=== PATIENT | female | born 1990 | race Hispanic/Latino ===

== ENCOUNTER 2018-08-31 13:07 | Emergency (ER) | payer OTHER ==
[2018-08-31 13:52] LABS: Urine Blood 1+ (NEG); Urine Glucose NEGATIVE (NEG); Urine Protein 1+ (NEG)
[2018-08-31 14:11] LABS: Urine Bacteria 20-50 /HPF (<20); Urine Culture Reflex Order REFLEXED; Urine Mucus 4+ /HPF (NONE SEEN); Urine RBC <5 /HPF (NONE SEEN)
[2018-08-31 15:05] LABS: Absolute Lymphocytes (CBC) 1.2 K/uL (0.7-4.9); Absolute Monocytes 0.4 K/uL (0.1-1.3); Absolute Neutrophil 3.1 K/uL (1.8-8.0); Basophils % 0.4 % (0-1.3); Eosinophils % 0.2 % (0-4.4); Hematocrit 39.9 % (36.0-45.0); Lymphocytes % 24.9 % (15.3-44.8); MPV 7.9 fL (7.6-11.3); Monocytes % 8.9 % (3.3-12.3); RBC Red Blood Cell Count 4.49 M/uL (3.86-4.86)
[2018-08-31] MEDS ORDERED: NA CHLORIDE 0.9% 1,000 ML ONE (15:14)
[2018-08-31] MEDS ORDERED: ACETAMINOPHEN 325 MG TABLET ONE (15:14)
--- NOTE | 2018-08-31 15:14 | RAD REPORT ---
EXAM DESCRIPTION: US - Transvaginal OB - 08/31/2018 2:26 pm CLINICAL HISTORY: , vaginal bleeding COMPARISON: None. TECHNIQUE: Endovaginal sonography performed. FINDINGS: A normal shaped intrauterine gestational sac is identified. pole is seen. [place]-rump length corresponds to a 9 week 3 day age. Calculated CARA is 04/02/2019. Heart rate is 177 BPM. Yolk sac is identified. A very small 5 mm subchorionic hemorrhage is present not seen as significant. A small 2 centimeter right ovarian cyst is present. No suspicious right ovarian or right adnexal find ing. Left ovary was not visualized. No left adnexal mass. Cervical canal appears closed. No blood or fluid in the cervical canal identified. IMPRESSION: Single 9 week 3 day IUP. Heart rate is 177 BPM. Cervical canal appears closed with no fluid or blood component. A very minimal 5 mm subchorionic hemo rrhage is present not regarded as significant.
[2018-08-31 15:40] LABS: BUN Blood Urea Nitrogen 9 mg/dL (7-18); Bicarbonate 25 mmol/L (21-32); Glucose Level 91 mg/dL (74-106); HCG, Quantitative 146029 mIU/mL (1-3); Potassium 3.8 mmol/L (3.5-5.1); Sodium Level 139 mmol/L (136-145)
[2018-08-31] MEDS ORDERED: CEFTRIAXONE/SWI 1gm 1 GM/10 ML SYR ONE (15:43)
--- NOTE | 2018-08-31 16:04 | EDPHYS ---
Physician Documentation [facility] Name: Jannette Persaud Age: 28 yrs Sex: Female : 1990 Arrival Date: 08/31/2018 Time: 13:11 Bed 23 Private MD: ED Physician Max Klein HPI: 08/31 14:05 This 28 yrs old Female presents to ER via Ambulatory with complaints of pm1 Vaginal Bleeding. 14:05 The patient presents with vaginal bleeding that is spotting. Onset: The pm1 symptoms/episode began/occurred 3 day(s) ago. Modifying factors: The symptoms are alleviated by nothing, the symptoms are aggravated by nothing. Associated signs and symptoms: Pertinent positives: cramping, Pertinent negatives: diarrhea, dysuria, fever, nausea, vaginal discharge, vomiting. Severity of symptoms: in the emergency department the symptoms are unchanged. The patient is sexually active. The patient has not experienced similar symptoms in the past. 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 No prior U/S of this current . LAB HEAD: 13:14 LMP 06/25/2018 14:05 2, Full Term 1, 0, Living 1 pm1 Historical: - Allergies: 13:13 No Known Allergies; hj - Home Meds: 13:13 Vitamin Oral tab 1 tab once daily [Active]; hj - PMHx: 13:13 None; hj - PSHx: 13:13 ; hj - Immunization history:: Adult Immunizations up to date. - Social history:: Smoking status: Patient/guardian denies using tobacco, Patient/guardian denies using alcohol. - Ebola Screening: : Patient negative for fever greater than or equal to 101.5 degrees Fahrenheit, and additional compatible Ebola Virus Disease symptoms Patient denies exposure to infectious person Patient denies travel to an Ebola-affected area in the 21 days before illness onset. ROS: 14:05 Positive for vaginal bleeding, Negative for burning with urination, difficulty pm1 urinating, vaginal discharge. 14:05 Constitutional: Negative for fever, chills, and weight loss, Eyes: Negative for injury, pain, redness, and discharge, ENT: Negative for injury, pain, and discharge, Neck: Negative for injury, pain, and swelling, Cardiovascular: Negative for chest pain, palpitations, and edema, Respiratory: Negative for shortness of breath, cough, wheezing, and pleuritic chest pain, Back: Negative for injury and pain, MS/Extremity: Negative for injury and deformity, Skin: Negative for injury, rash, and discoloration, Neuro: Negative for headache, weakness, numbness, tingling, and seizure. 14:05 Abdomen/GI: Positive for abdominal cramps, Negative for nausea, vomiting, and diarrhea. Exam: 14:07 Constitutional: This is a well developed, well nourished patient who is awake, alert, pm1 and in no acute distress. Head/Face: Normocephalic, atraumatic. Eyes: Pupils equal round and reactive to light, extra-ocular motions intact. Lids and lashes normal. Conjunctiva and sclera are non-icteric and not injected. Cornea within normal limits. Periorbital areas with no swelling, redness, or edema. ENT: Nares patent. No nasal discharge, no septal abnormalities noted. Tympanic membranes are normal and external auditory canals are clear. Oropharynx with no redness, swelling, or masses, exudates, or evidence of obstruction, uvula midline. Mucous membranes moist. Neck: Trachea midline, no thyromegaly or masses palpated, and no cervical lymphadenopathy. Supple, full range of motion without nuchal rigidity, or vertebral point tenderness. No Meningismus. Chest/axilla: Normal chest wall appearance and motion. Nontender with no deformity. No lesions are appreciated. Cardiovascular: Regular rate and rhythm with a normal S1 and S2. No gallops, murmurs, or rubs. Normal PMI, no JVD. No pulse deficits. Respiratory: Lungs have equal breath sounds bilaterally, clear to auscultation and percussion. No rales, rhonchi or wheezes noted. No increased work of breathing, no retractions or nasal flaring. 14:07 Back: No spinal tenderness. No costovertebral tenderness. Full range of motion. Skin: Warm, dry with normal turgor. Normal color with no rashes, no lesions, and no evidence of cellulitis. 14:07 MS/ Extremity: Pulses equal, no cyanosis. Neurovascular intact. Full, normal range of motion. 14:07 Abdomen/GI: Inspection: abdomen appears normal, Bowel sounds: normal, Palpation: abdomen is soft and non-tender. 14:07 Neuro: Orientation: is normal, Motor: is normal, moves all fours, strength is normal. Vital Signs: 13:14 BP 111 / 69; Pulse 80; Resp 18; Temp 98.1(O); Pulse Ox 100% on R/A; Weight 72.57 kg; hj Height 5 ft. 5 in. (165.10 cm); Pain 2/10; 15:21 BP 106 / 73; Pulse 85; Resp 18; Pulse Ox 100% on R/A; tl3 16:33 BP 101 / 74; Pulse 68; Resp 18; Pulse Ox 100% on R/A; tl3 13:14 Body Mass Index 26.62 (72.57 kg, 165.10 cm) hj MDM: 13:19 Patient medically screened. pm1 14:08 Data reviewed: vital signs. Data interpreted: Pulse oximetry: on room air is 100 %. pm1 Interpretation: normal. 16:03 Counseling: I had a detailed discussion with the patient and/or guardian regarding: the pm1 historical points, exam findings, and any diagnostic results supporting the discharge/admit diagnosis, lab results, radiology results, the need for outpatient follow up, to return to the emergency department if symptoms worsen or persist or if there are any questions or concerns that arise at home. 08/31 13:35 Order name: Quantitative Hcg; Complete Time: 15:46 pm1 08/31 13:35 Order name: Abo/rh Typing; Complete Time: 16:03 pm1 08/31 13:35 Order name: Basic Metabolic Panel; Complete Time: 15:46 pm1 08/31 13:35 Order name: CBC with Diff; Complete Time: 15:16 pm1 08/31 13:35 Order name: Urine Microscopic Only; Complete Time: 14:55 pm1 08/31 13:47 Order name: Urine Dipstick--Ancillary (enter results); Complete Time: 14:55 eb 08/31 13:32 Order name: Urine Dipstick-Ancillary (obtain specimen); Complete Time: 14:16 pm1 08/31 13:32 Order name: Urine Test (obtain specimen); Complete Time: 14:16 pm1 08/31 13:36 Order name: US Transvaginal Ob; Complete Time: 15:16 pm1 08/31 13:47 Order name: Urine --Ancillary (enter results); Complete Time: 14:55 eb 08/31 14:12 Order name: Urine Culture [facility] 08/31 13:35 Order name: IV Saline Lock; Complete Time: 15:09 pm1 08/31 13:35 Order name: Labs collected and sent; Complete Time: 15:09 pm1 08/31 13:35 Order name: NPO; Complete Time: 14:16 pm1 Administered Medications: 15:25 Drug: Tylenol 650 mg Route: PO; tl3 16:13 Follow up: Response: No adverse reaction tl3 15:25 Drug: NS 0.9% 1000 ml Route: IV; Rate: 1000 ml; Site: left antecubital; Delivery: tl3 Primary tubing; 16:13 Follow up: IV Status: Completed infusion; IV Intake: 1000ml tl3 16:00 Drug: Rocephin 1 grams {Note: IVP.} Route: IV; Rate: calculated rate; Site: left tl3 antecubital; 16:32 Follow up: IV Status: Completed infusion; IV Intake: 20ml tl3 Disposition: 08/31/18 16:03 Discharged to Home. Impression: Threatened . - Condition is Stable. - Discharge Instructions: Threatened Miscarriage, and Urinary Tract Infection, Pelvic Rest. - Prescriptions for Macrobid 100 mg Oral Capsule - take 1 capsule by ORAL route every 12 hours for 10 days; 20 capsule. - Medication Reconciliation Form, Thank You Letter, Antibiotic Education form. - Follow up: Emergency Department; When: As needed; Reason: Worsening of condition. Follow up: Private Physician; When: 2 - 3 days; Reason: Recheck today's complaints, Continuance of care, Re-evaluation by your physician. - Problem is new. - Symptoms have improved. Addendum: 09/05/2018 11:57 Co-signature as Attending Physician, Max Klein MD I agree with the assessment and k dr plan of care. Signatures: Dispatcher [employer] [facility] Max Klein MD MD [facility] Alex Chandler RN RN Simon Ross NP REGIONAL TRAINER pm1 Ilene Gabriel RN RN tl3 Corrections: (The following items were deleted from the chart) 08/31 16:37 16:03 08/31/2018 16:03 Discharged to Home. Impression: Threatened . Condition tl3 is Stable. Forms are Medication Reconciliation Form, Thank You Letter, Antibiotic Education, Prescription Opioid Use. Follow up: Emergency Department; When: As needed; Reason: Worsening of condition. Follow up: Private Physician; When: 2 - 3 days; Reason: Recheck today's complaints, Continuance of care, Re-evaluation by your physician. Problem is new. Symptoms have improved. pm1
--- NOTE | 2018-08-31 16:04 | ER ---
Nurse's Notes [facility] Name: Jannette Persaud Age: 28 yrs Sex: Female : 1990 Arrival Date: 08/31/2018 Time: 13:11 Bed 23 Private MD: Diagnosis: Threatened Presentation: 08/31 13:11 Presenting complaint: Patient states: LMP- 06/25/18; slade been spotting since Monday, hj it comes and goes, it looks like brown in color; my OB is out of town; reports lower abs pain and back pain; pain is 2/10;. Transition of care: patient was not received from another setting of care. Onset of symptoms was August 31, 2018. Risk Assessment: Do you want to hurt yourself or someone else? Patient reports no desire to harm self or others. Initial Sepsis Screen: Does the patient meet any 2 criteria? No. Patient's initial sepsis screen is negative. Does the patient have a suspected source of infection? No. Patient's initial sepsis screen is negative. Care prior to arrival: None. 13:11 Method Of Arrival: Ambulatory 13:11 Acuity: BRENDA 3 hj Triage Assessment: 13:14 General: Appears in no apparent distress. uncomfortable, Behavior is calm, cooperative, hj appropriate for age. Pain: Complains of pain in abdomen. : Reports vaginal bleeding that is brown, spotty, since Monday. 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 - Social history:: Smoking status: Patient/guardian denies using tobacco, Patient/guardian denies using alcohol. - Ebola Screening: : Patient negative for fever greater than or equal to 101.5 degrees Fahrenheit, and additional compatible Ebola Virus Disease symptoms Patient denies exposure to infectious person Patient denies travel to an Ebola-affected area in the 21 days before illness onset. Screenin:14 Abuse screen: Denies threats or abuse. Denies injuries from another. Nutritional hj screening: No deficits noted. Tuberculosis screening: No symptoms or risk factors identified. Fall Risk None identified. Assessment: 13:14 : hj 13:23 General: Appears in no apparent distress. comfortable, well groomed, well developed, tl3 well nourished, Behavior is calm, cooperative, appropriate for age. Pain: Complains of pain in abdomen Quality of pain is described as crampy. Neuro: Level of Consciousness is awake, alert, Oriented to person, place, time, situation, Appropriate for age. Cardiovascular: Patient's skin is warm and dry. Respiratory: Airway is patent Respiratory effort is even, unlabored, Respiratory pattern is regular, symmetrical. GI: No signs and/or symptoms were reported involving the gastrointestinal system. : Reports discharge, brownish spotting discharge for two days. EENT: No signs and/or symptoms were reported regarding the EENT system. Derm: No signs and/or symptoms reported regarding the dermatologic system. Musculoskeletal: No signs and/or symptoms reported regarding the musculoskeletal system. 15:21 Reassessment: Patient appears in no apparent distress at this time. No changes from tl3 previously documented assessment. Patient and/or family updated on plan of care and expected duration. Pain level reassessed. Patient is alert, oriented x 3, equal unlabored respirations, skin warm/dry/pink. no needs at this time. 16:33 Reassessment: Patient appears in no apparent distress at this time. No changes from tl3 previously documented assessment. Patient and/or family updated on plan of care and expected duration. Pain level reassessed. Patient is alert, oriented x 3, equal unlabored respirations, skin warm/dry/pink. Simon at bedside discussing lab and radiology reports, pt being discharged. Vital Signs: 13:14 BP 111 / 69; Pulse 80; Resp 18; Temp 98.1(O); Pulse Ox 100% on R/A; Weight 72.57 kg; hj Height 5 ft. 5 in. (165.10 cm); Pain 2/10; 15:21 BP 106 / 73; Pulse 85; Resp 18; Pulse Ox 100% on R/A; tl3 16:33 BP 101 / 74; Pulse 68; Resp 18; Pulse Ox 100% on R/A; tl3 13:14 Body Mass Index 26.62 (72.57 kg, 165.10 cm) ED Course: 13:11 Patient arrived in ED. hj 13:13 Triage completed. hj 13:14 Arm band placed on right wrist. hj 13:16 Patient has correct armband on for positive identification. Placed in gown. Bed in low hj position. Call light in reach. Side rails up X 1. Adult w/ patient. 13:17 Simon Rowe NP is PHCP. pm1 13:17 Max Klein MD is Attending Physician. pm1 13:20 Ilene Gabriel RN is Primary Nurse. tl3 13:23 No provider procedures requiring assistance completed. tl3 14:00 Patient taken to ultrasound. via wheelchair. tl3 14:00 Missed attempt(s): 20 gauge in right antecubital area. tl3 14:26 US Transvaginal Ob In Process Unspecified. EDMS 15:21 Inserted saline lock: 20 gauge in left antecubital area, using aseptic technique. tl3 16:33 IV discontinued, intact, bleeding controlled, No redness/swelling at site. Pressure tl3 dressing applied. Administered Medications: 15:25 Drug: Tylenol 650 mg Route: PO; tl3 16:13 Follow up: Response: No adverse reaction tl3 15:25 Drug: NS 0.9% 1000 ml Route: IV; Rate: 1000 ml; Site: left antecubital; Delivery: tl3 Primary tubing; 16:13 Follow up: IV Status: Completed infusion; IV Intake: 1000ml tl3 16:00 Drug: Rocephin 1 grams {Note: IVP.} Route: IV; Rate: calculated rate; Site: left tl3 antecubital; 16:32 Follow up: IV Status: Completed infusion; IV Intake: 20ml tl3 Intake: 16:13 IV: 1000ml; Total: 1000ml. tl3 16:32 IV: 20ml; Total: 1020ml. tl3 Outcome: 16:03 Discharge ordered by . pm1 16:33 Discharged to home ambulatory. tl3 16:33 Condition: stable 16:33 Discharge instructions given to patient, Instructed on discharge instructions, Demonstrated understanding of instructions, follow-up care, medications, Prescriptions given X 1. 16:37 Patient left the ED. tl3 Signatures: Dispatcher [employer] EDMS Alex Chandler RN RN Simon Rowe NP OUTREACH REPRESENTATIVE pm1 Ilene Gabriel, RN RN tl3 Corrections: (The following items were deleted from the chart) 13:17 13:14 Pulse 80bpm; Resp 18bpm; Pulse Ox 100% RA; Temp 98.1F Oral; 72.57 kg; Height 5 hj ft. 5 in.; BMI: 26.6; Pain 2/10; hj
[2018-08-31 16:42] VITALS: TEMP 98.1; O2SAT 100
[2018-08-31 16:44] VITALS: BP 101/74
== END 2018-08-31 16:37 | disposition home or self-care (01) ==
LOC: ER 13:07
DX: O20.0 Threatened abortion (principal); Z3A.09 9 weeks gestation of pregnancy
CPT/HCPCS: 36415; 76817; 80048; 81003; 81015; 81025; 84702; 85025; 86900; 86901; 87086; 87088; 96361; 96365; 99284; J0696; J7030

== ENCOUNTER 2019-03-25 11:08 | Inpatient (IN) | payer OTHER ==
[2019-03-24 12:18] LABS: Urine Appearance CLOUDY; Urine Bilirubin NEGATIVE (NEG); Urine Blood NEGATIVE (NEG); Urine Color YELLOW; Urine Glucose NEGATIVE (NEG); Urine Protein NEGATIVE (NEG)
[2019-03-24 12:22] LABS: Absolute Lymphocytes (CBC) 2.1 K/uL (0.7-4.9); Basophils % 0.4 % (0-1.3); Hematocrit 34.8 % (36.0-45.0); Lymphocytes % 20.7 % (15.3-44.8); MPV 8.7 fL (7.6-11.3); RBC Red Blood Cell Count 3.93 M/uL (3.86-4.86)
[2019-03-24 12:36] LABS: Urine Bacteria >50 /HPF (<20); Urine Culture Reflex Order REFLEXED; Urine RBC <5 /HPF (NONE SEEN)
[2019-03-24 23:35] LABS: RPR (Rapid Plasma Reagin) NON-REACT (NON-REACT)
[2019-03-25] MEDS ORDERED: NA CIT/CITRIC AC 30 ML ORAL UDC PO ONE (11:54)
[2019-03-25] MEDS ORDERED: EPHEDRINE SULF 50 MG/ML VIAL ONE (11:56)
[2019-03-25] MEDS ORDERED: MORPHINE SULFATE/PF 1 MG/ML (10 ML AMP) ONE (11:56)
[2019-03-25] MEDS ORDERED: NS 0.9% VIAL 10 ML ONE (11:57)
[2019-03-25] MEDS ORDERED: OXYTOCIN 10 UNIT/ML ML IV ONE (11:58)
[2019-03-25] MEDS ORDERED: CEFAZOLIN 3 GM in NA CHLORIDE 0.9% 100 ML IVPB SCH (12:00)
[2019-03-25] MEDS ORDERED: METOCLOPRAMIDE 10 MG/2mL INJ IV SCH (12:00)
[2019-03-25] MEDS ORDERED: LIDOCAINE 1% MPF 5 ML VIAL ONE (12:01)
[2019-03-25] MEDS ORDERED: Ringers Lactate 1,000 ML IV ONE (12:02)
[2019-03-25 12:03] VITALS: BMI 36.4
[2019-03-25] MEDS ORDERED: METOCLOPRAMIDE 10 MG/2mL INJ ONE (12:12)
[2019-03-25] MEDS ORDERED: NA CIT/CITRIC AC 30 ML ORAL UDC ONE (12:13)
[2019-03-25] MEDS ORDERED: METHYLERGONOVINE 0.2MG/ML AMP IM ONE (12:13)
[2019-03-25] MEDS ORDERED: CARBOPROST TROME 250 MCG/ML IM ONE (12:13)
[2019-03-25] MEDS ORDERED: CEFAZOLIN/SWI 2gm 2 GM/20 ML SYR ONE (12:13)
[2019-03-25] MEDS ORDERED: CEFAZOLIN/SWI 1gm 1 GM/10 ML SYR ONE (12:13)
[2019-03-25] MEDS ORDERED: FAMOTIDINE 20 MG/2 ML VIAL IV ONE ×2 (12:13→12:14)
[2019-03-25] MEDS ORDERED: ONDANSETRON 4 MG/2 ML VIAL ONE (13:52)
[2019-03-25] MEDS ORDERED: OXYTOCIN/LR 20 UNIT/1,000 ML BAG IV ONE ×2 (13:56→21:59)
[2019-03-25 17:43] VITALS: O2SAT 100
[2019-03-25] MEDS ORDERED: METHYLERGONOVINE 0.2 MG TAB PO PRN (17:59)
[2019-03-25] MEDS ORDERED: Oxycodone HCl/Acetaminophen 1 TAB TAB PO PRN ×2 (17:59)
[2019-03-25] MEDS ORDERED: ACETAMINOPHEN 500 MG TAB PO PRN (17:59)
[2019-03-25] MEDS ORDERED: KETOROLAC 30 MG/ML INJ IV PRN (18:01)
--- NOTE | 2019-03-25 18:03 | P.OP ---
Jig Hand: Gabrielle Ortega Preoperative diagnosis: 39 weeks gestation with prior c section declines Postoperative diagnosis: same and uterine adhesions Primary procedure: Repeat low transverse section Secondary procedure: none Anesthesia: Spinal Estimated blood loss: 900cc Specimen: cord blood, placenta Findings: female infant, apgars 9/9 weight 8lb 9 oz Operative Technique: The patient was taken to the operating room where spinal anesthesia was administered without difficulty. The patient was prepped and draped in the usual sterile fashion in the dorsal supine position with a leftward tilt. A Pfannenstiel skin incision was made with the scalpel and carried through to the underlying layer of fascia using the scalpel. The fascia was incised in the midline and extended laterally using Mcdaniel scissors. Jairon clamps were used to elevate the superior aspect of the fascial incision, which was elevated, and the underlying rectus muscles were dissected off bluntly and using Mcdaniel scissors. Attention was then turned to the inferior aspect of the fascial incision, which in similar fashion was grasped with Jairon clamps, elevated, and the underlying rectus muscles were dissected off bluntly and using the Bovie. The rectus muscles were dissected in the midline. The peritoneum was identified and entered using Metzenbaum scissors; this incision was extended superiorly and inferiorly with good visualization of the bladder. The bladder blade was inserted. The vesicouterine peritoneum was identified and entered sharply using Metzenbaum scissors. This incision was extended laterally and the bladder flap was created digitally. The bladder blade was reinserted. The lower uterine segment was incised in a transverse fashion using the scalpel and extended using bandage scissors as well as manual traction. Clear fluid was noted. The was subsequently delivered. The nose and mouth were bulb suctioned. The cord was clamped and cut. The was subsequently handed to the awaiting nursery nurse. The placenta was delivered spontaneously intact with a three-vessel cord noted. The uterus was exteriorized and cleared of all clots and debris. The uterine incision was repaired in 2 layers using 0 vicryol sutures. Hemostasis was visualized. The vesical uterine peritoneum was reapproximated with 3 O Vicryl. The uterus was returned to the abdomen. The uterine incision was reexamined and it was noted to be hemostatic. The rectus muscles were reapproximated in the midline using 0 Vicryl. The fascia was closed with 1 Vicryl suture, the subcutaneous layer was closed with 2-0 plain gut, and the skin was closed with 3 O Vicryl on a Jason needle. Sponge, lap, and instrument counts were correct x2. The patient was stable at the completion of the procedure and was subsequently transferred to the recovery room in stable condition. Drain(s): Urinary catheter Transferred to: Recovery Room Condition: Good
[2019-03-25] MEDS ORDERED: OXYTOCIN/LR 20 UNIT/1,000 ML BAG IV SCH (23:00)
[2019-03-26 04:57] LABS: Absolute Lymphocytes (CBC) 2.6 K/uL (0.7-4.9); Basophils % 0.6 % (0-1.3); Hematocrit 35.8 % (36.0-45.0); Lymphocytes % 18.2 % (15.3-44.8); MPV 9.2 fL (7.6-11.3); RBC Red Blood Cell Count 4.07 M/uL (3.86-4.86)
[2019-03-26] MEDS ORDERED: Ringers Lactate 1,000 ML IV ONE (06:21)
[2019-03-26] MEDS ORDERED: FAMOTIDINE 20 MG/2 ML VIAL IV ONE (11:52)
[2019-03-26] MEDS: IBUPROFEN 400 MG TAB PO PRN (21:10)
--- NOTE | 2019-03-26 22:50 | P.PN ---
Date of Service: 03/26/19 The patient is postop day 1 from a repeat section. She is doing well. She is tolerating diet. Her pain is well controlled. She is afebrile. She has no complaints today she is bonding well with the baby and is breast-feeding. Vital sign stable Selected Entries 03/26/19 08:00 Temperature 97.5 F Pulse Rate 72 Respiratory 16 Rate Blood Pressure 100/40 L O2 Sat by Pulse 100 Oximetry Pain Level 0 Laboratory Tests 03/24/19 03/25/19 03/26/19 11:58 18:15 04:23 WBC 10.1 14.4 H D Hgb 12.2 12.4 Hct 34.8 L 33.8 L 35.8 L Plt Count 185 183 General: Resting in bed no distress Head and neck: Normocephalic atraumatic, supple Respiratory: Symmetric nonlabored breathing Abdomen: Soft, mildly distended, mildly tender. Incision clean dry and intact Bilateral lower extremities: No clubbing cyanosis or edema. Assessment and plan patient is postop day 1 after repeat section she is doing well. Pain is well controlled. Discontinue IV discontinue Turner catheter. Encourage patient to ambulate. Discharge home tomorrow.
[2019-03-27] MEDS ORDERED: Ringers Lactate 1,000 ML IV ONE (07:15)
[2019-03-27] MEDS: IBUPROFEN 400 MG TAB PO PRN (07:45)
[2019-03-27 07:49] VITALS: TEMP 97.4
[2019-03-27 07:51] VITALS: BP 92/50
[2019-03-29 04:26] LABS: HBsAG Nonreactive (Nonreactive)
--- NOTE | 2019-04-12 10:45 | P.DS ---
Admission Date: 03/25/19 Discharge Date: 03/27/19 Disposition: ROUTINE DISCHARGE Discharge Condition: GOOD Brief History of Present Illness: Admitted for term - repeat section. see h&P Hospital Course: Patient did well following delivery. Her pain has been well managed. She is bonding well with the baby and trying to breast feed. She denies any issues. NO fever, chills or respiratory discomfort. Positive flatus. No bowel movements yet. Vital Signs/Physical Exam: Temp Pulse Resp BP Pulse Ox 97.4 F 68 18 92/50 L 03/27/19 07:30 03/27/19 07:30 03/27/19 07:30 03/27/19 07:30 General: Alert, In no apparent distress HEENT: Atraumatic Neck: Supple Respiratory: Clear to auscultation bilaterally, Normal air movement Cardiovascular: No edema, Normal pulses Gastrointestinal: Normal bowel sounds, No rebound, No guarding, Other (incision clean, dry and intact) Musculoskeletal: No clubbing, No swelling Integumentary: No rashes, No breakdown Neurological: Normal gait, Normal speech, Normal tone Laboratory Data at Discharge: WBC 14.4 K/uL (4.3-10.9) H D 03/26/19 04:23 Hgb 12.4 g/dL (12.0-15.0) 03/26/19 04:23 Hct 35.8 % (36.0-45.0) L 03/26/19 04:23 Plt Count 183 K/uL (152-406) 03/26/19 04:23 Home Medications: Vit #76/Iron,Carb/FA [Pnv 29-1 Tablet] 1 each PO DAILY 01/10/17 Codeine/APAP [Tylenol W/Codeine #3 tab] 1 tab PO Q6HP PRN #24 tab 03/27/19 New Medications: Codeine/APAP [Tylenol W/Codeine #3 tab] 1 tab PO Q6HP PRN #24 tab PRN Reason: Pain Diet: Regular Activity: No lifting more than 10 lbs
== END 2019-03-27 10:50 | disposition home or self-care (01) | DRG 788 ==
LOC: 2ND-WC 11:08
PROVIDERS: ADMIT Student in an Organized Health Care Education/Training Program; ATTEND Student in an Organized Health Care Education/Training Program
PROC: 10D00Z1 Extraction of Products of Conception, Low, Open Approach (ICD-10-PCS; principal; 2019-03-25 12:30)
DX: O34.211 Maternal care for low transverse scar from previous cesarean delivery (principal); O26.03 Excessive weight gain in pregnancy, third trimester; Z3A.39 39 weeks gestation of pregnancy; Z37.0 Single live birth
CPT/HCPCS: 36415; 81001; 85014; 85025; 86592; 86900; 86901; 87086; 87088; 87340; 88307; J0690; J2210; J2405; J2590; J2765